=== PATIENT | male | born 1955 | race African-American/Black ===

== ENCOUNTER 2022-01-23 17:21 | Inpatient (IN) ==
[2022-01-23 18:46] LABS: ABS Lymphocytes 0.7 10^3/ul (1.0-4.8); ABS Monocytes 0.6 10^3/ul (0-0.8); ABS Neutrophils 6.8 10^3/ul (1.5-7.7); Eosinophil % 0.3 %; Hematocrit 35 % (42-52); Hemoglobin 11.5 g/dL (14.0-18.0); Lymphocyte % 8.3 %; Mean Corpuscular HGB Conc 33 g/dL (31-36); Mean Corpuscular Hemoglobin 31 pg (27-31); Mean Corpuscular Volume 93 fL (80-94); Mean Platelet Volume 8.7 fL (7.4-10.4); Nucleated Red Blood Cells % 0.1; Platelet Count 327 10^3/uL (150-450); Red Blood Count 3.74 10^6 /uL (4.18-5.48); Red Cell Distribution Width 20 % (10-15); White Blood Count 8.2 10^3/uL (3.5-10.8)
[2022-01-23 18:54] LABS: C Reactive Protein 73.24 mg/L (<8.01); Potassium 4.4 mmol/L (3.5-5.0); eGFR CKD-EPI 103.4 (>60)
[2022-01-23 19:20] LABS: Osmolality Serum 270 mOsm/kg (275-295)
[2022-01-23] MEDS ORDERED: Cefepime ADVAN 1 GM in NS 0.9% 50 ML 50 ML IVPB SCH (21:00)
[2022-01-23] MEDS ORDERED: Vancomycin per Pharmacy 1 EA NOTE FOLLOW UP SCH (21:00)
[2022-01-23] MEDS: Enoxaparin 40 MG/0.4 ML SYR SUBCUT SCH (21:56)
[2022-01-23] MEDS: Vancomycin 1,000 MG in NS 0.9% 250 ml 250 ML IVPB SCH ×2 (22:29→23:47)
[2022-01-23] MEDS: CEFEPIME 1 GM SCH (22:45)
[2022-01-24] MEDS ORDERED: Furosemide 20 mg/2 ml IV VIAL IV ONE (00:23)
[2022-01-24] MEDS: Morphine 2 MG/ML SYRINGE IV PRN ×2 (01:56→10:48)
[2022-01-24 05:34] LABS: ABS Basophils 0.1 10^3/ul (0-0.2); ABS Lymphocytes 0.8 10^3/ul (1.0-4.8); ABS Monocytes 0.7 10^3/ul (0-0.8); ABS Neutrophils 8.1 10^3/ul (1.5-7.7); Eosinophil % 0.5 %; Hematocrit 33 % (42-52); Hemoglobin 10.9 g/dL (14.0-18.0); Lymphocyte % 8.5 %; Mean Corpuscular HGB Conc 33 g/dL (31-36); Mean Corpuscular Hemoglobin 31 pg (27-31); Mean Corpuscular Volume 94 fL (80-94); Platelet Count 291 10^3/uL (150-450); Red Cell Distribution Width 20 % (10-15); White Blood Count 9.8 10^3/uL (3.5-10.8)
[2022-01-24 06:26] LABS: C Reactive Protein 70.5 mg/L (<8.01); Calcium 8.8 mg/dL (8.6-10.3); Potassium 4.1 mmol/L (3.5-5.0)
[2022-01-24] MEDS: CMCS: FLUTICAS/UMECLI/VILANT 100-62.5-25 MDI (NF) INH SCH (06:59)
[2022-01-24] MEDS: CEFEPIME 1 GM SCH ×2 (10:37→22:12)
[2022-01-24] MEDS: Vancomycin 1,750 MG in NS 0.9% 500 ml BAG 500 ML IVPB SCH (11:57)
[2022-01-24] MEDS ORDERED: HYDROmorphone 1 MG/1 ML SYRINGE IV ONE (12:30)
[2022-01-24] MEDS: Collagenase 250 units/gm OINT 1 tube TOPICAL SCH (12:30)
[2022-01-24] MEDS ORDERED: Morphine 2 MG/ML SYRINGE IV PRN (14:19)
[2022-01-24] MEDS: Enoxaparin 40 MG/0.4 ML SYR SUBCUT SCH (20:56)
[2022-01-25] MEDS: Vancomycin 1,750 MG in NS 0.9% 500 ml BAG 500 ML IVPB SCH ×2 (01:01→13:23)
[2022-01-25] MEDS: Morphine 2 MG/ML SYRINGE IV PRN ×3 (03:40→15:54)
[2022-01-25 05:56] LABS: ABS Eosinophils 0.1 10^3/ul (0-0.6); ABS Lymphocytes 0.8 10^3/ul (1.0-4.8); ABS Monocytes 0.8 10^3/ul (0-0.8); ABS Neutrophils 3.4 10^3/ul (1.5-7.7); Eosinophil % 1.8 %; Hematocrit 32 % (42-52); Hemoglobin 10.8 g/dL (14.0-18.0); Mean Corpuscular HGB Conc 33 g/dL (31-36); Mean Corpuscular Hemoglobin 32 pg (27-31); Mean Corpuscular Volume 94 fL (80-94); Platelet Count 249 10^3/uL (150-450); Red Blood Count 3.42 10^6 /uL (4.18-5.48); Red Cell Distribution Width 21 % (10-15); White Blood Count 5.2 10^3/uL (3.5-10.8)
[2022-01-25 06:16] LABS: Calcium 8.3 mg/dL (8.6-10.3); Potassium 3.9 mmol/L (3.5-5.0); eGFR CKD-EPI 89.4 (>60)
[2022-01-25] MEDS: CMCS: FLUTICAS/UMECLI/VILANT 100-62.5-25 MDI (NF) INH SCH (07:33)
[2022-01-25] MEDS ORDERED: Vancomycin Trough Check NOTE FOLLOW UP ONE (11:30)
[2022-01-25] MEDS: CEFEPIME 1 GM SCH (11:32)
[2022-01-25] MEDS: Collagenase 250 units/gm OINT 1 tube TOPICAL SCH (19:46)
[2022-01-25] MEDS: Enoxaparin 40 MG/0.4 ML SYR SUBCUT SCH (20:44)
[2022-01-26] MEDS: Albuterol HFA INHALER 8 gm MDI INH PRN (04:34)
[2022-01-26 05:04] LABS: ABS Basophils 0.1 10^3/ul (0-0.2); ABS Eosinophils 0.2 10^3/ul (0-0.6); ABS Monocytes 0.8 10^3/ul (0-0.8); ABS Neutrophils 3.1 10^3/ul (1.5-7.7); Eosinophil % 4.4 %; Hematocrit 32 % (42-52); Hemoglobin 10.6 g/dL (14.0-18.0); Lymphocyte % 19.5 %; Mean Corpuscular HGB Conc 33 g/dL (31-36); Mean Corpuscular Hemoglobin 31 pg (27-31); Mean Corpuscular Volume 94 fL (80-94); Mean Platelet Volume 8.1 fL (7.4-10.4); Platelet Count 285 10^3/uL (150-450); Red Blood Count 3.39 10^6 /uL (4.18-5.48); Red Cell Distribution Width 20 % (10-15); White Blood Count 5.2 10^3/uL (3.5-10.8)
[2022-01-26 05:41] LABS: Calcium 8.8 mg/dL (8.6-10.3); eGFR CKD-EPI 67.4 (>60)
[2022-01-26] MEDS: CMCS: FLUTICAS/UMECLI/VILANT 100-62.5-25 MDI (NF) INH SCH (07:46)
[2022-01-26] MEDS ORDERED: Psyllium PAK PO PRN (09:35)
[2022-01-26] MEDS: Collagenase 250 units/gm OINT 1 tube TOPICAL SCH (12:25)
[2022-01-26] MEDS: Morphine 2 MG/ML SYRINGE IV PRN ×2 (16:13→19:19)
[2022-01-26 17:27] LABS: Urine Appearance Clear; Urine Bilirubin Negative (Negative); Urine Blood Negative (Negative); Urine Color Yellow; Urine Glucose Negative (Negative); Urine Ketones Negative (Negative); Urine Nitrite Negative (Negative); Urine Protein Negative (Negative); Urine Specific Gravity 1.015 (1.005-1.030); Urine Urobilinogen 0.2 (Negative) (Negative); Urine pH 5.5 (5.0-9.0)
[2022-01-26] MEDS: Enoxaparin 40 MG/0.4 ML SYR SUBCUT SCH (20:09)
[2022-01-26] MEDS: Acetaminophen IV 1 GM/100ML 1,000 MG/100 ML BAG IV SCH (22:12)
[2022-01-27] MEDS: Morphine 2 MG/ML SYRINGE IV PRN ×3 (03:42→13:11)
[2022-01-27] MEDS: Acetaminophen IV 1 GM/100ML 1,000 MG/100 ML BAG IV SCH ×2 (05:30→13:55)
[2022-01-27 06:36] LABS: Calcium 8.8 mg/dL (8.6-10.3); Potassium 4.1 mmol/L (3.5-5.0); eGFR CKD-EPI 57.4 (>60)
[2022-01-27] MEDS ORDERED: NS 0.9% 500 ml BAG 500 ML IV ONE (07:23)
[2022-01-27] MEDS ORDERED: Dextrose 50% Syringe 50 ml 25 GM/50 ML SYRINGE IV PUSH PRN (07:35)
[2022-01-27] MEDS: CMCS: FLUTICAS/UMECLI/VILANT 100-62.5-25 MDI (NF) INH SCH (08:54)
[2022-01-27] MEDS: Albuterol HFA INHALER 8 gm MDI INH PRN (08:54)
[2022-01-27 16:24] LABS: eGFR CKD-EPI 68.1 (>60)
[2022-01-27] MEDS: Morphine ER 30 mg TAB ** extended release PO SCH (20:06)
[2022-01-27] MEDS: Enoxaparin 40 MG/0.4 ML SYR SUBCUT SCH (20:07)
[2022-01-27] MEDS ORDERED: Magnesium Hydroxide LIQ 30 ML UDC PO PRN (20:17)
[2022-01-27] MEDS ORDERED: Senna TAB 8.6 mg TAB PO SCH (21:00)
[2022-01-28 06:52] LABS: ABS Basophils 0.1 10^3/ul (0-0.2); ABS Eosinophils 0.3 10^3/ul (0-0.6); ABS Lymphocytes 0.9 10^3/ul (1.0-4.8); ABS Monocytes 0.8 10^3/ul (0-0.8); ABS Neutrophils 2.7 10^3/ul (1.5-7.7); Eosinophil % 5.9 %; Hematocrit 31 % (42-52); Hemoglobin 10.2 g/dL (14.0-18.0); Lymphocyte % 19.8 %; Mean Corpuscular HGB Conc 33 g/dL (31-36); Mean Corpuscular Hemoglobin 31 pg (27-31); Mean Corpuscular Volume 94 fL (80-94); Mean Platelet Volume 8.4 fL (7.4-10.4); Nucleated Red Blood Cells % 0.1; Platelet Count 305 10^3/uL (150-450); Red Blood Count 3.24 10^6 /uL (4.18-5.48); Red Cell Distribution Width 20 % (10-15); White Blood Count 4.8 10^3/uL (3.5-10.8)
[2022-01-28 07:13] LABS: Calcium 8.9 mg/dL (8.6-10.3); Potassium 4.7 mmol/L (3.5-5.0); eGFR CKD-EPI 86.1 (>60)
[2022-01-28] MEDS: CMCS: FLUTICAS/UMECLI/VILANT 100-62.5-25 MDI (NF) INH SCH (07:28)
[2022-01-28] MEDS: Morphine ER 30 mg TAB ** extended release PO SCH (07:45)
[2022-01-28 12:25] VITALS: BP 155/68
== END 2022-01-28 15:10 | DRG 948 ==
LOC: ED 17:21 → EDHOLD 22:34 → SUATTDRO 22:34 → SSU 01-24 01:00 → MED 01-26 15:47
PROVIDERS: ADMIT Internal Medicine; ATTEND Internal Medicine